=== PATIENT | male | born 1965 | race Caucasian/White ===

== ENCOUNTER → 2019-06-10 08:05 | Outpatient (CLI) | payer OTHER, SELFPAY ==
[2019-06-10 08:53] LABS: Add Manual Diff / Slide Review NO; Basophils Absolute Auto 0 /uL (0-100); Basophils Percent Auto 0.7 % (0-2); Eosinophils Absolute Auto 200 /uL (0-450); Eosinophils Percent Auto 3.1 % (2-4); Hematocrit 47.6 % (41-53); Hemoglobin 17.1 g/dL (13.5-17.5); Lymphocytes Absolute Auto 1700 /uL (1100-4500); Lymphocytes Percent Auto 25.1 % (25-40); Mean Corpuscular HGB Conc 35.8 % (30-36); Mean Corpuscular Hemoglobin 31.7 PG (26-34); Mean Corpuscular Volume 88.6 fL (80-100); Monocytes Absolute Auto 600 /uL (0-900); Monocytes Percent Auto 9.3 % (3-14); Neutrophils Absolute Auto 4200 /uL (1500-7000); Neutrophils Percent Auto 61.8 % (50-75); Platelet Count 196 X10^3/uL (150-400); Red Blood Cell Count 5.37 X10^6/uL (4.5-5.9); Red Cell Distribution Width 14.5 % (11.6-14.8); White Blood Cell Count 6.8 X10^3/uL (4.5-11.0)
[2019-06-10 09:11] LABS: Alanine Aminotransferase 12 IU/L (<50); Albumin 4.6 g/dL (3.5-5.0); Albumin Globulin Ratio 1.4 (1.0-2.8); Alkaline Phosphatase 72 U/L (38-126); Aspartate Aminotransferase 22 IU/L (17-59); Blood Urea Nitrogen 19 mg/dL (9-20); Calcium 9.8 mg/dL (8.4-10.2); Carbon Dioxide 29 mmol/L (22-32); Chloride 105 mmol/L (98-107); Cholesterol 244 mg/dL (140-199); Estimated Glomerular Filt Rate > 60.0 mL/min (>60); Globulin 3.2 g/dL (1.7-4.1); Glucose 121 mg/dL (70-100); HDL Cholesterol 36 mg/dL (40-60); HEMOLYSIS < 15 (0-50); LDL Cholesterol Calculated 159 mg/dL (<100); Sodium 142 mmol/L (137-145); Total Protein 7.8 g/dL (6.3-8.2); Triglycerides 244 mg/dL (35-150)
[2019-06-10 09:22] LABS: Free T4, Direct Thyroxine 0.58 ng/dL (0.78-2.19)
[2019-06-10 09:36] LABS: Prostate Specific Antigen 0.666 ng/mL (0.10-4.00)
== END ==
PROVIDERS: Visit Provider Nurse Practitioner
DX: Z00.00 Encounter for general adult medical examination without abnormal findings (principal); I10 Essential (primary) hypertension
CPT/HCPCS: 36415; 80053; 80061; 84153; 84439; 84443; 84481; 85025

== ENCOUNTER → 2019-07-27 07:58 | Outpatient (CLI) | payer OTHER, SELFPAY ==
--- NOTE | 2019-07-27 07:59 | DI.ECHO.S_ITS ---
[facility] +---------+ : : [address] : [place] : : : : [id number] : : : : Phone: [phone]+ Echocardiogram Report + + :Name: SUNNI NOBLES Study Date: 07/27/2019 Height: 70 in : :[facility] Weight: 214 lb : : Gender: Male BSA: 2.1 m2 : :: 1965 Age: 53 yrs BP: 148/82 mmHg: :Reason For Study: Hypertension : : Performed By: Rony Cutler : :Referring: PRASAD FRAGOSO : + + Interpretation Summary Borderline concentric left ventricular hypertrophy with ejection fraction 60- 65%. Normal right ventricle and both atria. No valvular abnormality. Procedure: A two-dimensional transthoracic echocardiogram with color flow and Doppler was performed. The study quality was technically adequate. There is no prior echocardiogram noted for this patient. The patient was in normal sinus rhythm during the exam. Left Ventricle: The left ventricle is normal in size. There is borderline concentric left ventricular hypertrophy. The ejection fraction is estimated to be 60-65%. Left ventricular wall motion is normal. Diastolic parameters suggest probable normal left ventricular diastolic function and normal filling pressures. Right Ventricle: The right ventricle is normal in size and function. Atria: The left atrial size is normal. Right atrial size is normal. The interatrial septum is intact with no evidence for an atrial septal defect. Mitral Valve: The mitral valve is normal in structure and function. There is trace mitral regurgitation. Aortic Valve: The aortic valve is trileaflet. The aortic valve opens well. No aortic regurgitation is present. Tricuspid Valve: The tricuspid valve is normal in structure and function. No tricuspid regurgitation. Pulmonic Valve: The pulmonic valve is normal in structure and function. There is trace pulmonic regurgitation. Great Vessels: The aortic root is normal size. The dimensions of the ascending aorta are normal. The pulmonary artery is normal size. The IVC is of normal diameter and collapses greater than 50% with a sniff. This suggests a low right atrial pressure of 3 mm Hg. Pericardium/ Pleura There is no pericardial effusion. There is no pleural effusion. MMode/2D Measurements & Calculations LVIDd: 4.7 cm LVOT diam: 2.3 cm LVIDs: 3.1 cm Ao root diam: 3.2 cm FS: 34.3 % asc Aorta Diam: 3.5 cm EPSS: 0.51 cm IVSd: 1.1 cm LV alves. diameter/BSA (cm/m^2): 2.2 LV sys. diameter/BSA (cm/m^2): 1.4 LA A2 area: 19.6 cm2 RA long axis: 4.7 cm LA A4 area: 19.6 cm2 RA area: 13.4 cm2 LA length (vol): 5.1 cm RA vol: 32.0 ml LA vol: 64.0 ml RA : 14.9 ml/m2 LA vol index: 29.8 ml/m2 TAPSE: 2.5 cm Doppler Measurements & Calculations Ao V2 max: 128.1 cm/sec LVOT Max Andrae: 118.5 cm/sec Ao V2 mean: 89.5 cm/sec LV V1 max P.6 mmHg Ao max P.6 mmHg LV V1 VTI: 25.6 cm Ao mean P.7 mmHg MURRAY(I,D): 4.3 cm2 Ao V2 VTI: 25.3 cm MURRAY(V,D): 3.9 cm2 sev ratio: 1.0 MURRAY indexed to BSA (cm^2/m^2): 2.0 MV E max andrae: 59.5 cm/sec PA V2 max: 89.9 cm/sec MV A max andrae: 79.6 cm/sec PA V2 mean: 65.5 cm/sec MV E/A: 0.75 PA mean P.9 mmHg Med Peak E' Andrae: 6.8 cm/sec PA Accel Time: 0.12 sec E/E' med: 8.7 Lat Peak E' Andrae: 7.9 cm/sec E/E' lat: 7.5 E/e' average: 8.1 MV dec time: 0.14 sec SV(LVOT): 107.7 ml Electronically signed by: Zeynep Abarca on Reading Physician:07/27/2019 02:06 PM
== END ==
PROVIDERS: PCP Nurse Practitioner; Visit Provider Nurse Practitioner
DX: I10 Essential (primary) hypertension (principal); E78.5 Hyperlipidemia, unspecified; E78.1 Pure hyperglyceridemia
CPT/HCPCS: 93306

== ENCOUNTER 2019-09-07 07:29 | Day surgery (SDC) | payer OTHER, SELFPAY ==
--- NOTE | 2019-09-07 | PATH_ITS ---
[facility] Accession Number: [id number] . 01 Material submitted: . cecum - CECAL POLYP . 01 Clinical history: . SCREENING COLONOSCOPY . 02 Diagnosis: Cecum, Polyp, Biopsy: Tubular adenoma in one of three fragments. Benign lymphoid aggregate in one fragment. MRV 09/08/2019 0956 Local . 02 Electronically signed: . Mirtha Stevens MD, Pathologist NPI- [id number] . 01 Gross description: . CECAL POLYP: Received in formalin are 3 fragment(s) of nguyen, soft tissue measuring 0.1 x 0.1 x 0.1 cm to 0.2 x 0.2 x 0.1 cm submitted entirely in 1 cassette(s) /[facility] 09/07/2019 1923 Local . 02 Pathologist provided ICD-10: D12.0 . 02 CPT . 179317 Performed at: 01 [facility] [address], [place], [place] [id number] MD Gregg Gutierrez MD Phone: [phone] Performed at: 02 [facility] [address] [place], [place] [id number] MD Mirtha Stevens MD Phone: [phone]
[2019-09-07 07:58] VITALS: BP 151/99; PULSE 87; RESP 17; TEMP 36.7; O2SAT 96; BMI 28.3
[2019-09-07] MEDS: SODIUM CHLORIDE 0.9% 1,000 ML 200 ML IV (08:09)
--- NOTE | 2019-09-07 08:11 | P.HP_ITS ---
History of Present Illness History of Present Illness Date Patient Seen: 09/07/19 Time Patient Seen: 08:11 Chief complaint: [id number] SCREENING COLONOSCOPY Narrative: Patient presents for colorectal screening. They have never had any previous examination for such. No personal or family history of colon cancer. On further history denies any recent gastrointestinal symptoms. No nausea, vomiting, abdominal pain, loss of appetite, unexplained weight loss, change in b owel habits, diarrhea, constipation, melena, hematochezia, or bright red blood per rectum. Patient History Medical History Daily consumption of alcohol (Acute) Granuloma annulare (Acute) Hyperlipidemia (Acute) Hypertension (Acute) Hypertriglyceridemia (Acute) Marijuana smoker, episodic (Acute) Surgical History H/O vasectomy (Acute) Family & Social History Family History Father History of heart disease Mother Cancer Brother Multiple sclerosis Hypertension Brother Hypertension Sister Thyroid cancer Family/Other History of heart disease Social History: household members spouse Tobacco & Substance use: Smoking Status Never smoker alcohol intake current alcohol intake frequency 3 or more drinks per day Substance Use Type marijuana Meds Home Medications and Allergies Home Medications Medication Instructions Recorded Confirmed Type levothyroxine 75 mcg capsule 75 mcg PO DAILY #30 cap 07/09/19 09/07/19 Rx lisinopril 5 mg tablet 5 mg PO DAILY #30 tab 07/09/19 09/07/19 Rx simvastatin 40 mg tablet 40 mg PO QPM #30 tab 07/09/19 09/07/19 Rx Allergies Allergy/AdvReac Type Severity Reaction Status Date / Time No Known Drug Allergies Allergy Verified 09/07/19 07:56 Review of Systems Review of Systems Narrative: A 10 point review of systems is negative except as noted in the HPI Exam Vital Signs (past 8 hours): - 09/07/19 07:58 Temperature 98.1 F Pulse Rate 87 Respiratory Rate 17 Blood Pressure 151/99 H Pulse Oximetry 96 Oxygen Delivery Method Room Air Narrative Exam Narrative: General-no acute distress, well nourished HEENT-moist mucous membranes, no scleral icterus Neck-supple, no lymphadenopathy Chest- non labored respirations, clear to auscultation bilaterally Cardiac-regular rate no peripheral edema Abdomen-soft, nontender, non distended Extremities-warm, well perfused Neurological-alert and oriented, no focal deficits Assessment & Plan Assessment and plan (1) Screening for colon cancer: Current visit: Yes Status: Acute Assessment & Plan narrative: The patient requires colorectal screening and colonoscopy is recommended. Technical details were discussed. Risks, benefits, alternatives explained. Risks including but not limited to myocardial infarction, aspiration, bleeding, pain, missed lesion, incomplete examination, need for further radiographic studies, colonic perforation, and need for major abdominal surgery were discussed. All questions were answered to their satisfaction, and they are in agreement with this plan.
[2019-09-07] MEDS: MIDAZOLAM 5 MG/ML VIAL 4 MG IV (08:29)
[2019-09-07] MEDS: fentaNYL 250 MCG/5 ML INJ IV (08:30)
--- NOTE | 2019-09-07 08:44 | PM.OP.ENDO ---
Operative Date/Time/Diagnoses Date of procedure: 09/07/19 Time of procedure: 08:44 Pre-op diagnosis: Screening colonoscopy Post-op diagnosis: same Procedure & Clinicians Study performed: Colonoscopy Same procedure as scheduled: Yes Indications: No prior colonoscopy presents for screening Surgeon: Rajiv Barbosa Procedure Notes SCOAP/Timeout: Performed Procedure in detail: Patient placed in left lateral decubitus position. Time out was performed. Procedural sedation was administered with Versed and Fentanyl. A rectal exam demonstrated no external hemorrhoids no internal masses. Colonoscopy scope was placed into the rectum and advanced through the colon to the cecum. The ileocecal valve was identified. The scope was then slowly withdrawn examining colon thoroughly in all directions. The colonoscopy was notable for the following 1. Cecal polyp less than 1 cm appears hyperplastic 2. No masses 3. Sigmoid diverticulosis Scope withdrawal time: 6 Sedation minutes: 17 Findings: diverticulosis and polyp Specimen(s): other (Cecal polyp) Complications: none Impression: Cecal polyp Post-procedure Recommendations: Colonscopy in 10 years Disposition: same day surgery
[2019-09-07 08:48] VITALS: BP 151/95; PULSE 75; RESP 16; TEMP 36.3; O2SAT 95
[2019-09-07 08:53] VITALS: BP 126/94; PULSE 75; RESP 19; O2SAT 97
[2019-09-07 08:58] VITALS: BP 111/82; PULSE 78; RESP 18; O2SAT 96
[2019-09-07 09:00] VITALS: BP 124/90; PULSE 75; RESP 13; O2SAT 95
[2019-09-07 09:05] VITALS: BP 132/98; PULSE 77; RESP 16; TEMP 36.5; O2SAT 98
== END 2019-09-07 09:14 | disposition home or self-care (01) ==
PROVIDERS: PCP Nurse Practitioner; Referring Provider Surgery; Visit Provider Surgery
PROC: 0DJD8ZZ Inspection of Lower Intestinal Tract, Via Natural or Artificial Opening Endoscopic (ICD-10-PCS; CPT 45378; principal; 2019-09-07 08:30)
DX: Z12.11 Encounter for screening for malignant neoplasm of colon (principal); K57.30 Diverticulosis of large intestine without perforation or abscess without bleeding; D12.0 Benign neoplasm of cecum
CPT/HCPCS: 45380; 99152; J2250; J3010

== ENCOUNTER → 2019-12-02 09:17 | Outpatient (CLI) | payer OTHER, SELFPAY ==
[2019-12-02 10:28] LABS: Hemoglobin A1C% w Est Avg Glu 5.2 % (4.0-6.0)
[2019-12-02 11:02] LABS: Alanine Aminotransferase 14 IU/L (<50); Albumin 4.6 g/dL (3.5-5.0); Albumin Globulin Ratio 1.4 (1.0-2.8); Alkaline Phosphatase 76 U/L (38-126); Aspartate Aminotransferase 27 IU/L (17-59); Cholesterol 186 mg/dL (140-199); Globulin 3.2 g/dL (1.7-4.1); Glucose 110 mg/dL (70-100); HDL Cholesterol 41 mg/dL (40-60); HEMOLYSIS < 15 (0-50); LDL Cholesterol Calculated 124 mg/dL (<100); Total Protein 7.8 g/dL (6.3-8.2); Triglycerides 104 mg/dL (35-150)
[2019-12-02 12:07] LABS: Creatinine Urine Random 165.6 mg/dL
== END ==
PROVIDERS: PCP Nurse Practitioner; Referring Provider Nurse Practitioner; Visit Provider Nurse Practitioner
DX: E78.1 Pure hyperglyceridemia (principal); E78.5 Hyperlipidemia, unspecified; I10 Essential (primary) hypertension; R73.9 Hyperglycemia, unspecified; E03.9 Hypothyroidism, unspecified; Z79.899 Other long term (current) drug therapy
CPT/HCPCS: 36415; 80061; 80076; 82043; 82570; 82947; 83036; 84439; 84443

== ENCOUNTER → 2020-09-14 08:26 | Outpatient (CLI) | payer OTHER, SELFPAY ==
[2020-09-14 09:36] LABS: Cholesterol 130 mg/dL (140-199); HDL Cholesterol 32 mg/dL (40-60); LDL Cholesterol Calculated 72 mg/dL (<100); Triglycerides 131 mg/dL (35-150)
[2020-09-14 10:17] LABS: Thyroid Stimulating Hormone 4.22 uIU/mL (0.47-4.68)
== END ==
PROVIDERS: PCP Nurse Practitioner; Referring Provider Nurse Practitioner; Visit Provider Nurse Practitioner
DX: E78.5 Hyperlipidemia, unspecified (principal); I10 Essential (primary) hypertension; R79.89 Other specified abnormal findings of blood chemistry
CPT/HCPCS: 36415; 80061; 84443

== ENCOUNTER → 2021-10-16 08:57 | Outpatient (CLI) | payer OTHER, SELFPAY ==
[2021-10-16 09:30] LABS: Hematocrit 46.4 % (41-53); Hemoglobin 16.4 g/dL (13.5-17.5); Mean Corpuscular HGB Conc 35.2 % (30-36); Mean Corpuscular Hemoglobin 31.1 PG (26-34); Mean Corpuscular Volume 88.2 fL (80-100); Platelet Count 157 X10^3/uL (150-400); Red Blood Cell Count 5.26 X10^6/uL (4.5-5.9); White Blood Cell Count 5.7 X10^3/uL (4.5-11.0)
[2021-10-16 10:12] LABS: Alanine Aminotransferase 20 IU/L (<50); Albumin 4.4 g/dL (3.5-5.0); Albumin Globulin Ratio 1.3 (1.0-2.8); Alkaline Phosphatase 55 U/L (38-126); Aspartate Aminotransferase 27 IU/L (17-59); BUN Creatinine Ratio 13.3 (6-22); Bilirubin Total 0.7 mg/dL (0.2-1.3); Blood Urea Nitrogen 12 mg/dL (9-20); Calcium 8.9 mg/dL (8.4-10.2); Carbon Dioxide 28 mmol/L (22-32); Chloride 108 mmol/L (98-107); Cholesterol 146 mg/dL (140-199); Estimated Glomerular Filt Rate > 60.0 mL/min (>60); Globulin 3.3 g/dL (1.7-4.1); Glucose 129 mg/dL (70-100); HDL Cholesterol 33 mg/dL (40-60); HEMOLYSIS < 15 (0-50); LDL Cholesterol Calculated 79 mg/dL (<100); Potassium 3.9 mmol/L (3.4-5.1); Sodium 144 mmol/L (137-145); Total Protein 7.7 g/dL (6.3-8.2); Triglycerides 171 mg/dL (35-150)
[2021-10-16 10:36] LABS: Thyroid Stimulating Hormone 3.67 uIU/mL (0.47-4.68)
[2021-10-16 13:00] LABS: Creatinine Urine Random 77.9 mg/dL; Microalbumi Creatinin Ratio Ur 12.8 ug/mg CR (<30)
== END ==
PROVIDERS: PCP Nurse Practitioner; Referring Provider Nurse Practitioner; Visit Provider Nurse Practitioner
DX: Z00.00 Encounter for general adult medical examination without abnormal findings (principal); E03.9 Hypothyroidism, unspecified; E78.2 Mixed hyperlipidemia; I10 Essential (primary) hypertension
CPT/HCPCS: 36415; 80053; 80061; 82043; 82570; 84443; 85027

== ENCOUNTER → 2023-01-28 08:46 | Outpatient (CLI) | payer OTHER, SELFPAY ==
[2023-01-28 09:42] LABS: Add Manual Diff / Slide Review NO; Basophils Absolute Auto 0 /uL (0-100); Basophils Percent Auto 0.6 % (0-2); Eosinophils Absolute Auto 200 /uL (0-450); Eosinophils Percent Auto 3.1 % (2-4); Hematocrit 46.8 % (41-53); Hemoglobin 16.8 g/dL (13.5-17.5); Lymphocytes Absolute Auto 1500 /uL (1100-4500); Mean Corpuscular HGB Conc 35.8 % (30-36); Mean Corpuscular Hemoglobin 31.8 PG (26-34); Mean Corpuscular Volume 88.8 fL (80-100); Monocytes Absolute Auto 600 /uL (0-900); Monocytes Percent Auto 10.1 % (3-14); Neutrophils Absolute Auto 4000 /uL (1500-7000); Neutrophils Percent Auto 63.2 % (50-75); Platelet Count 160 X10^3/uL (150-400); Red Blood Cell Count 5.27 X10^6/uL (4.5-5.9); Red Cell Distribution Width 14.5 % (11.6-14.8); White Blood Cell Count 6.4 X10^3/uL (4.5-11.0)
[2023-01-28 10:08] LABS: Alanine Aminotransferase 18 IU/L (<50); Albumin 4.4 g/dL (3.5-5.0); Albumin Globulin Ratio 1.3 (1.0-2.8); Alkaline Phosphatase 60 U/L (38-126); Aspartate Aminotransferase 27 IU/L (17-59); BUN Creatinine Ratio 19.8 (6-22); Bilirubin Total 0.9 mg/dL (0.2-1.3); Blood Urea Nitrogen 16 mg/dL (9-20); Carbon Dioxide 27 mmol/L (22-32); Chloride 104 mmol/L (98-107); Cholesterol 128 mg/dL (140-199); Estimated Glomerular Filt Rate > 60 mL/min (>60); Globulin 3.3 g/dL (1.7-4.1); Glucose 108 mg/dL (70-100); HDL Cholesterol 36 mg/dL (40-60); HEMOLYSIS < 15 (0-50); LDL Cholesterol Calculated 71 mg/dL (<100); Potassium 4.1 mmol/L (3.4-5.1); Sodium 139 mmol/L (137-145); Total Protein 7.7 g/dL (6.3-8.2); Triglycerides 103 mg/dL (35-150)
[2023-01-28 10:14] LABS: Creatinine Urine Random 71.2 mg/dL
[2023-01-28 10:18] LABS: Microalbumi Creatinin Ratio Ur 12.6 ug/mg CR (<30); Microalbumin Urine Random 0.9 mg/dL (0-1.6)
[2023-01-28 10:29] LABS: Thyroid Stimulating Hormone 3.74 uIU/mL (0.47-4.68)
[2023-01-28 10:45] LABS: Free T3, Triiodothyronine Free 4.32 pg/mL (2.77-5.27); Free T4, Direct Thyroxine 0.77 ng/dL (0.78-2.19)
[2023-01-28 20:46] LABS: HIV 1 & 2 Ab/Ag 4th Gen Combo NEGATIVE (NEGATIVE); Hep C Virus Ab w/Reflex Quant NEGATIVE s/c (NEGATIVE)
[2023-01-29 02:36] LABS: x Labcorp Estim. Avg Glu (eAG) 100 mg/dL (.); x Labcorp Hemoglobin A1c 5.1 % (4.8-5.6)
== END ==
PROVIDERS: PCP Nurse Practitioner; Referring Provider Nurse Practitioner; Visit Provider Nurse Practitioner
DX: Z00.00 Encounter for general adult medical examination without abnormal findings (principal); Z11.4 Encounter for screening for human immunodeficiency virus [HIV]; Z11.59 Encounter for screening for other viral diseases
CPT/HCPCS: 36415; 80053; 80061; 82043; 82570; 83036; 84439; 84443; 84481; 85025; 86803; 87389

== ENCOUNTER → 2023-12-31 09:18 | Outpatient (CLI) | payer OTHER, SELFPAY ==
[2023-12-31 10:01] LABS: Add Manual Diff / Slide Review NO; Basophils Absolute Auto 0 /uL (0-100); Basophils Percent Auto 0.2 % (0-2); Eosinophils Absolute Auto 200 /uL (0-450); Eosinophils Percent Auto 2.2 % (2-4); Hematocrit 47.1 % (41-53); Hemoglobin 16.6 g/dL (13.5-17.5); Lymphocytes Absolute Auto 1400 /uL (1100-4500); Lymphocytes Percent Auto 19.6 % (25-40); Mean Corpuscular HGB Conc 35.3 % (30-36); Mean Corpuscular Hemoglobin 31.4 PG (26-34); Mean Corpuscular Volume 88.9 fL (80-100); Monocytes Absolute Auto 700 /uL (0-900); Monocytes Percent Auto 9.6 % (3-14); Neutrophils Absolute Auto 4700 /uL (1500-7000); Neutrophils Percent Auto 68.4 % (50-75); Platelet Count 213 X10^3/uL (150-400); Red Blood Cell Count 5.29 X10^6/uL (4.5-5.9); Red Cell Distribution Width 14.3 % (11.6-14.8); White Blood Cell Count 6.9 X10^3/uL (4.5-11.0)
[2023-12-31 10:09] LABS: Hemoglobin A1C% w Est Avg Glu 5.3 % (4.0-6.0)
[2023-12-31 10:15] LABS: Alanine Aminotransferase 15 IU/L (<50); Albumin 4.7 g/dL (3.5-5.0); Albumin Globulin Ratio 1.5 (1.0-2.8); Alkaline Phosphatase 68 U/L (38-126); Aspartate Aminotransferase 27 IU/L (17-59); Bilirubin Total 0.8 mg/dL (0.2-1.3); Blood Urea Nitrogen 9 mg/dL (9-20); Carbon Dioxide 26 mmol/L (22-32); Chloride 108 mmol/L (98-107); Cholesterol 128 mg/dL (140-199); Estimated Glomerular Filt Rate > 60 mL/min (>60); Globulin 3.2 g/dL (1.7-4.1); Glucose 122 mg/dL (70-100); HDL Cholesterol 45 mg/dL (40-60); HEMOLYSIS < 15 (0-50); LDL Cholesterol Calculated 63 mg/dL (<100); Sodium 141 mmol/L (137-145); Total Protein 7.9 g/dL (6.3-8.2); Triglycerides 102 mg/dL (35-150)
[2023-12-31 10:45] LABS: Prostate Specific Antigen 1.54 ng/mL (0.10-4.00); Thyroid Stimulating Hormone 4.08 uIU/mL (0.47-4.68)
[2023-12-31 10:53] LABS: Creatinine Urine Random 175.74 mg/dL
[2023-12-31 10:58] LABS: Microalbumin Urine Random 3.6 mg/dL (0-1.6)
== END ==
PROVIDERS: PCP Nurse Practitioner; Referring Provider Nurse Practitioner; Visit Provider Nurse Practitioner
DX: Z00.00 Encounter for general adult medical examination without abnormal findings (principal); R73.01 Impaired fasting glucose
CPT/HCPCS: 36415; 80053; 80061; 82043; 82570; 83036; 84153; 84443; 85025

== ENCOUNTER → 2024-02-05 07:42 | Outpatient (CLI) | payer OTHER, SELFPAY ==
--- NOTE | 2024-02-05 07:43 | DI.US.S_ITS ---
PROCEDURE: US ABDOMEN LIMITED INDICATIONS: RUQ PAIN, N/V, LOSS OF APPETITE, WT LOSS TECHNIQUE: Real-time scanning was performed of the abdominal and retroperitoneal organs, with image documentation. COMPARISON: None. FINDINGS: Liver: Liver is normal in size and homogeneous in echotexture. Gallbladder: There is a 2 cm hyperechoic linear focus with posterior shadowing. No wall thickening. No pericholecystic edema. There is debris within the gallbladder. L documented Portillo sign. Biliary ducts: Intrahepatic bile ducts are non-dilated. Extrahepatic bile duct caliber measures 6 mm. Normal is 6-7 mm or less in diameter, or 10 mm or less post-cholecystectomy. Pancreas: Visualized portions of the pancreas are sonographically normal. Miscellaneous: No free abdominal fluid. IMPRESSION: The gallbladder is distended with evidence for a gallstone. No pericholecystic fluid or wall thickening to suggest acute cholecystitis. Dictated by: Jeronimo Davis M.D. on 02/05/2024 at 10:10 Approved by: Jeronimo Davis M.D. on 02/05/2024 at 10:20
== END ==
PROVIDERS: PCP Nurse Practitioner; Referring Provider Nurse Practitioner; Visit Provider Nurse Practitioner
DX: K82.8 Other specified diseases of gallbladder (principal); R10.11 Right upper quadrant pain; R11.2 Nausea with vomiting, unspecified; R63.0 Anorexia; R63.4 Abnormal weight loss
CPT/HCPCS: 76705

== ENCOUNTER → 2024-03-03 08:02 | Outpatient (CLI) | payer OTHER, SELFPAY ==
--- NOTE | 2024-03-03 08:02 | DI.ECHO.S_ITS ---
[facility]---------+ [facility] : : [address] : : [place] : : [id number] : : Phone: [phone] Echocardiogram Report + + :Name: SUNNI NOBLES Study Date: 03/03/2024 Height: 69 in : :[facility] ReadingLocation: Weight: 215 lb : : Gender: Male BSA: 2.1 m2 : :: 1965 Age: 58 yrs BP: 157/106 mmHg: :Reason For Study: HYPERTENSION : :Ordering Physician: FOUZIA, : :PRASAD Performed By: Wendy Blevins : :Referring: PRASAD FRAGOSO : + + Interpretation Summary 1) Borderline increased left ventricular thickness (concentric) with normal size, normal wall motion, and normal systolic function (EF 55-60%). 2) Normal right ventricular size and function. 3) No significant valvular abnormalities. 4) Compared to the Echo done 07/27/2019, no significant change. Procedure: A two-dimensional transthoracic echocardiogram with color flow and Doppler was performed. The study quality was technically adequate. Comparison is made with the echocardiogram of 07/27/2019. The patient was in sinus rhythm with heart rates between 62-73 bpm during the exam. Left Ventricle: The left ventricle is normal in size. There is borderline concentric left ventricular hypertrophy. The ejection fraction is estimated to be 55-60%. Left ventricular systolic function appears normal without focal wall motion abnormalities. Diastolic parameters suggest a relaxation abnormality of the left ventricle, consistent with probable normal filling pressures. Right Ventricle: The right ventricle is normal in size and function. Atria: The left atrium is mildly dilated. Right atrial size is normal. There is no Doppler evidence for an interatrial shunt. Mitral Valve: There is mild mitral annular calcification. The mitral valve leaflets appear mildly thickened, but open well. There is trace mitral regurgitation. Aortic Valve: The aortic valve is trileaflet. The aortic valve is mildly calcified. There is no aortic valve stenosis. There is trace aortic regurgitation. Tricuspid Valve: The tricuspid valve is normal in structure and function. There is trace tricuspid regurgitation. The right ventricular systolic pressure is estimated to be at least 26 mmHg based on an estimated right atrial pressure of 3 mm Hg. Pulmonic Valve: The pulmonic valve leaflets are thin and pliable; valve motion is normal. There is no pulmonic valvular regurgitation. Great Vessels: The aortic root is normal size. The dimensions of the ascending aorta are normal. The IVC is of normal diameter and collapses greater than 50% with a sniff. This suggests a low right atrial pressure of 3 mm Hg. Pericardium/ Pleura There is no pericardial effusion. There is no pleural effusion. MMode/2D Measurements & Calculations LVIDd: 5.5 cm LVOT diam: 2.0 cm LVIDs: 3.7 cm Ao root diam: 3.3 cm FS: 32.6 % asc Aorta Diam: 3.8 cm EPSS: 0.34 cm Ao Arch Diam (Prox Trans): 2.3 cm IVSd: 1.2 cm LVPWd: 0.98 cm LV alves. diameter/BSA (cm/m^2): 2.6 LV sys. diameter/BSA (cm/m^2): 1.7 LA A2 area: 23.1 cm2 RA long axis: 5.5 cm LA A4 area: 19.7 cm2 RA area: 19.7 cm2 LA length (vol): 5.4 cm RA vol: 60.3 ml LA vol: 71.5 ml RA : 28.3 ml/m2 LA vol index: 33.6 ml/m2 IVC diam: 1.3 cm RVD1 (basal): 3.9 cm RVD2 (mid): 2.9 cm TAPSE: 1.8 cm Doppler Measurements & Calculations Ao V2 max: 152.5 cm/sec LVOT Max Andrae: 106.0 cm/sec Ao V2 mean: 112.0 cm/sec LV V1 max P.5 mmHg Ao max P.3 mmHg LV V1 VTI: 21.2 cm Ao mean P.5 mmHg MURRAY(I,D): 2.1 cm2 Ao V2 VTI: 32.4 cm MURRAY(V,D): 2.3 cm2 sev ratio: 0.66 MURRAY indexed to BSA (cm^2/m^2): 1.0 MV E max andrae: 58.8 cm/sec TR max andrae: 241.1 cm/sec MV A max andrae: 70.3 cm/sec TR max P.2 mmHg MV E/A: 0.84 PA V2 max: 120.4 cm/sec Med Peak E' Andrae: 5.7 cm/sec PA V2 mean: 81.4 cm/sec E/E' med: 10.3 PA mean P.0 mmHg Lat Peak E' Andrae: 8.9 cm/sec PA pr(Accel): 32.8 mmHg E/E' lat: 6.6 E/e' average: 8.5 MV dec time: 0.25 sec SV(LVOT): 69.6 ml Reading Physician:12:38 PM
== END ==
PROVIDERS: PCP Nurse Practitioner; Referring Provider Nurse Practitioner; Visit Provider Nurse Practitioner
DX: I10 Essential (primary) hypertension (principal); I51.7 Cardiomegaly; I34.81 Nonrheumatic mitral (valve) annulus calcification
CPT/HCPCS: 93306

== ENCOUNTER → 2024-11-06 08:04 | Outpatient (CLI) | payer BC, SELFPAY ==
[2024-11-06 08:31] LABS: Hematocrit 47.2 % (41-53); Hemoglobin 16.7 g/dL (13.5-17.5); Mean Corpuscular HGB Conc 35.3 % (30-36); Mean Corpuscular Hemoglobin 31.4 PG (26-34); Mean Corpuscular Volume 88.8 fL (80-100); Platelet Count 172 X10^3/uL (150-400); Red Blood Cell Count 5.32 X10^6/uL (4.5-5.9); Red Cell Distribution Width 14.6 % (11.6-14.8); White Blood Cell Count 6.6 X10^3/uL (4.5-11.0)
[2024-11-06 08:53] LABS: Creatinine Urine Random 99.73 mg/dL
[2024-11-06 08:54] LABS: Alanine Aminotransferase 18 IU/L (<50); Albumin 4.7 g/dL (3.5-5.0); Albumin Globulin Ratio 1.7 (1.0-2.8); Alkaline Phosphatase 55 U/L (38-126); Aspartate Aminotransferase 29 IU/L (17-59); BUN Creatinine Ratio 17.5 (6-22); Bilirubin Total 0.8 mg/dL (0.2-1.3); Blood Urea Nitrogen 17 mg/dL (9-20); Calcium 9.4 mg/dL (8.4-10.2); Carbon Dioxide 26 mmol/L (22-32); Chloride 107 mmol/L (98-107); Cholesterol 127 mg/dL (140-199); Estimated Glomerular Filt Rate > 60 mL/min (>60); Globulin 2.8 g/dL (1.7-4.1); Glucose 125 mg/dL (70-99); HDL Cholesterol 40 mg/dL (40-60); HEMOLYSIS < 15 (0-50); LDL Cholesterol Calculated 74 mg/dL (<100); Potassium 4.1 mmol/L (3.4-5.1); Sodium 142 mmol/L (137-145); Total Protein 7.5 g/dL (6.3-8.2); Triglycerides 63 mg/dL (35-150)
[2024-11-06 09:10] LABS: Free T4, Direct Thyroxine 0.76 ng/dL (0.78-2.19)
[2024-11-06 09:23] LABS: Thyroid Stimulating Hormone 4.85 uIU/mL (0.47-4.68)
[2024-11-06 09:24] LABS: Prostate Specific Antigen Scrn 1.23 ng/mL (0.1-4.0)
== END ==
LOC: LAB 08:05
PROVIDERS: PCP Family Medicine; Referring Provider Family Medicine; Visit Provider Family Medicine
DX: Z12.5 Encounter for screening for malignant neoplasm of prostate (principal); Z13.9 Encounter for screening, unspecified; E03.9 Hypothyroidism, unspecified; E78.5 Hyperlipidemia, unspecified; I10 Essential (primary) hypertension
CPT/HCPCS: 36415; 80053; 80061; 82043; 82570; 84402; 84403; 84439; 84443; 85027; G0103